=== PATIENT | male | born 1965 | race Caucasian/White ===

== ENCOUNTER → 2018-06-21 10:46 | Day surgery (SDC) | payer OTHER ==
[~2018-06-21 10:46] MED LIST: Buffered Lidocaine 1% SYRIN* 1 ML/SYRINGE INTRADERM ONE; Bupivacaine 0.5% W/EPI SDV* 30 ML VIAL ONE; EPINEPHRINE 1 MG/ML 1 ML VIAL ONE; Glycopyrrolate IV* 0.2 MG/ML 1 ML VIAL ONE; Lactated Ringers 1000 ML Bag* 1,000 ML IV SCH; Lidocaine 2% PF * 5 ML VIAL ONE; Midazolam* 1 MG/ML 2 ML VIAL (2 MG) ONE; Neostigmine Methylsulfate* 1 MG/ML 10 ML VIAL (1 mg/ml) ONE; Propofol* 10 MG/ML 20 ML BTL ONE; Rocuronium* 10 MG/ML VIAL ONE; ceFAZolin 2 GM PREMIX in ORs 2 GM/50 ML BAG IVPB ONE; fentaNYL* 50 MCG/ML 2 ML VIAL (100 MCG VIAL) ONE
[2018-06-21 12:10] LABS: Activated Partial Thrombo Time 27.8 seconds (26.0-36.3); INR 0.85 (0.77-1.02)
[2018-06-21 13:03] LABS: Hematocrit 40 % (42-52); Hemoglobin 13.9 g/dl (14.0-18.0); Mean Corpuscular HGB Conc 35 g/dl (31-36); Mean Corpuscular Hemoglobin 31 pg (27-31); Mean Corpuscular Volume 88 fL (80-94); Platelet Count 223 10^3/ul (150-450); Red Blood Count 4.51 10^6/ul (4.00-5.40); Red Cell Distribution Width 13 % (10.5-15); White Blood Count 5.5 10^3/ul (3.5-10.8)
[2018-06-21 18:45] VITALS: BP 132/76
--- NOTE | 2018-06-23 23:50 | OP ---
OPERATIVE REPORT: DATE OF OPERATION: 06/21/18 DATE OF : 63 SURGEON: Glen Mccracken MD RENTAL AGENT: NICOLETTE Santos ANESTHESIOLOGIST: Dr. Brennon Gutiérrez. ANESTHESIA: General anesthesia, regional interscalene block anesthesia. PRE-OP DIAGNOSES: 1. Right shoulder rotator cuff tendon tear, supraspinatus. 2. Right shoulder subacromial impingement. 3. Right shoulder acromioclavicular joint osteoarthritis. 4. Possible right shoulder biceps tendinosis or superior labral tear. 5. Possible right shoulder superior aspect undersurface subscapularis tendon partial-thickness tear. POST-OP DIAGNOSES: 1. Right shoulder rotator cuff tendon tear, supraspinatus. 2. Right shoulder subacromial impingement. 3. Right shoulder acromioclavicular joint osteoarthritis. 4. Right shoulder biceps tendinosis. 5. Right shoulder superior edge subscapularis minimal tendinosis, no high- grade tear. OPERATIVE PROCEDURE: 1. Right shoulder arthroscopic rotator cuff tendon repair, supraspinatus, double- row, with 4 anchors. 2. Right shoulder arthroscopic subacromial decompression. 3. Right shoulder arthroscopic distal clavicle resection. 4. Right shoulder arthroscopic limited debridement including release of biceps tendon. 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 The patient had multiple medical problems including a history of an aortic valve replacement and surgical fixation of an ascending aortic aneurysm. The patient had responded insufficiently to non-operative management and had opted for surgery. Appropriate bridging was performed with Lovenox as the patient was taken off Coumadin preoperatively. Appropriate preoperative clearances and optimization performed. MRI had shown a full-thickness tear of the distal supraspinatus tendon, a mild partial tear at the distal subscapularis tendon, and tendinosis versus a partial tear of the proximal long head of the biceps tendon. Discussed risks and potential complications of surgery and the patient opted to move forward with surgery. ANTIBIOTICS: Ancef 2 g IV. IV FLUIDS: 2000 cc crystalloid. BCUT-XA-IAAS TIME: 108 minutes. ARTHROSCOPY FLUID UTILIZED: Unknown. SPECIMEN: None. IMPLANTS: [employer]w anchors, 5.5 mm, double-loaded with SutureTape x2 in a medial row. Then there was a lateral row anchor which 4.75-mm Arthrex SwiveLock anchor. Then there was a fourth anchor anteriorly which was a Corkscrew anchor, 4.75 mm with SutureTape. COMPLICATIONS: None. ESTIMATED BLOOD LOSS: Minimal. DESCRIPTION OF PROCEDURE: The patient signed a written consent in the preoperative holding. Operative extremity was marked in the preoperative holding. Dr. Gutiérrez of anesthesia performed a regional interscalene block in the preoperative holding. The patient was taken back to the operating room and placed supine on the operating room table. Sedated and intubated. The patient was placed in the lateral decubitus position with the right shoulder up. Axillary roll placed. Yarbrough bag hardened. All bony prominences padded. Longitudinal traction placed with 15 pounds, appropriate amount of forward flexion and abduction of the shoulder. Right shoulder was prepped and draped. Surgical time-out performed. Spinal needle was used to enter the glenohumeral joint from posterior. 30 cc of normal saline was infused. Posterior glenohumeral joint portal was established. No severe articular cartilage damage. No loose body. Some clear fraying of the superior aspect of the subscapularis tendon. Clear full- thickness tear of supraspinatus. Some tendinosis along the long head of biceps tendon. No superior labral tear. Anterior glenohumeral joint portal was established under direct visualization. Used a probe to evaluate the long head of biceps tendon. I decided that it was sufficiently tendonotic to make release appropriate. I used arthroscopic scissors to cut the long head of biceps tendon at its origin. Interestingly, even after it was cut full thickness, it did not retract significantly at all. This was confirmation of its significantly tendonotic nature, especially distal to the joint. To avoid having prominent end of biceps tendon within the joint, I used an arthroscopic shaver to debride the prominent tendon to where it exited the joint. Next evaluated carefully the subscapularis tendon, which showed some possible superior aspect undersurface tearing on preoperative MRI. Used an arthroscopic shaver to smooth out the frayed superior end of it and there was no clear high- grade tear of the superior aspect of the tendon, either undersurface or elsewhere. Therefore, decided no subscapularis repair was required. Removed instruments and fluid from glenohumeral joint. Established anterior and posterior subacromial portals. Made lateral and then posterolateral portals under direct visualization. Installed plastic cannulas in anterior and lateral portals. Clear full-thickness supraspinatus rotator cuff tendon tear, likely involving a small amount of anterior infraspinatus. [place] shaped. It was retracted but not to the level of the glenoid. Rotator cuff grasper reduced it nicely to the whole amount of the footprint on the humeral head under some mild tension. Debrided the footprint with a VAPR and then an arthroscopic bur. Debrided tendon end with the arthroscopic shaver. I moved my arthroscope into the lateral cannula and I actually confirmed that the infraspinatus was not involved and it was just the supraspinatus that was involved in the tear. I was able to look nicely down the posterior aspect of the cuff musculature. Next, performed subacromial decompression. Did so using arthroscopic bur. Flattened down really nicely the undersurface of the anterior aspect of the acromion with the arthroscopic bur. Given the size, large, of the tear, full within the supraspinatus, I decided on a double-row repair. I inserted 2 Corkscrew 5.5-mm anchors in the more medial half of the footprint. These were each double-loaded with SutureTape. I used a Scorpion to pass horizontal mattress sutures. I passed all sutures from these 2 anchors before tying them. I next loaded all 8 SutureTapes from the medial row and placed them into a lateral row SwiveLock 4.75-mm anchor. I used a TigerTail suture from that lateral row anchor to place a simple stitch posteriorly to bring additional tendon nicely to bone. As I was evaluating this area of robust repair, I noted a small amount of tendon open into the joint anteriorly. Unclear how much of this was rotator cuff interval and how much of it was anterior most supraspinatus, but it appeared that some of this was anterior supraspinatus. I, therefore, decided to place one additional anchor, small anchor, Corkscrew 4.75 mm. I placed one horizontal mattress stitch with SutureTape very nicely opposed additional rotator cuff to bone. I examined the stability of my repair with movement of the upper arm and probing. Excellent repair that I was very happy with. I next proceeded to the distal clavicle in the AC joint. I debrided synovitis about this joint with VAPR. I then removed at least 8 mm of the distal end of the clavicle with an arthroscopic bur. I removed instruments and fluids from subacromial space. I closed skin incisions with [id number] and 12 stitches using nylon 3-0 sutures. Xeroform, 4x4s, ABDs, foam tape. Sling with abduction pillow. The patient was awakened, extubated, and brought to the PACU. The patient was discharged home with Percocet as needed for pain control. He was to restart Coumadin in the morning following surgery per his primary care physician's recommendations. He will see me in 10 to 14 days postoperatively. I will have him start physical therapy after that first clinic visit with me. He will be wearing the sling at all times. [id number]/CPS #: [id number]
== END | disposition home or self-care (01) ==
LOC: OR 10:46
PROVIDERS: ATTEND Orthopaedic Surgery
DX: S46.011A Strain of muscle(s) and tendon(s) of the rotator cuff of right shoulder, initial encounter (principal); M75.41 Impingement syndrome of right shoulder; M19.011 Primary osteoarthritis, right shoulder; M75.21 Bicipital tendinitis, right shoulder; G89.18 Other acute postprocedural pain; E78.5 Hyperlipidemia, unspecified; I10 Essential (primary) hypertension; K21.9 Gastro-esophageal reflux disease without esophagitis; X58.XXXA Exposure to other specified factors, initial encounter; Y92.9 Unspecified place or not applicable; Z79.01 Long term (current) use of anticoagulants; Z95.2 Presence of prosthetic heart valve
CPT/HCPCS: 36415; 85027; 85610; 85730; C1713; J0690; J2250; J2704; J2710; J3010

== ENCOUNTER 2021-05-02 06:12 | Observation (INO) ==
[~2021-05-02 06:12] MED LIST changes: +Buffered Lidocaine 1% SYRIN 1 ml INTRADERM ONE; -Buffered Lidocaine 1% SYRIN* 1 ML/SYRINGE INTRADERM ONE; -Bupivacaine 0.5% W/EPI SDV* 30 ML VIAL ONE; +DiMENhydriNATE IV 50 mg/ml 1 ml VIAL IV PUSH ONE; -EPINEPHRINE 1 MG/ML 1 ML VIAL ONE; -Glycopyrrolate IV* 0.2 MG/ML 1 ML VIAL ONE; +HYDROcodone/ACETAMIN 5/325 mg TAB PO PRN; -Lactated Ringers 1000 ML Bag* 1,000 ML IV SCH; +Lactated Ringers 1000 ml BAG 1,000 ML IV SCH; -Lidocaine 2% PF * 5 ML VIAL ONE; +Metoclopramide 5 MG/ML VIAL (10 mg) IV PRN; -Midazolam* 1 MG/ML 2 ML VIAL (2 MG) ONE; +Naloxone 0.4 mg VIAL 0.4 mg/ml 1 ml VIAL IV PRN; -Neostigmine Methylsulfate* 1 MG/ML 10 ML VIAL (1 mg/ml) ONE; +Ondansetron 4 mg VIAL 2 MG/ML 2 ml VIAL IV PRN; -Propofol* 10 MG/ML 20 ML BTL ONE; -Rocuronium* 10 MG/ML VIAL ONE; -ceFAZolin 2 GM PREMIX in ORs 2 GM/50 ML BAG IVPB ONE; +fentaNYL 100 mcg/2 ml 50 MCG/ML VIAL IV PRN; -fentaNYL* 50 MCG/ML 2 ML VIAL (100 MCG VIAL) ONE
[2021-05-02] MEDS ORDERED: DiMENhydriNATE IV 50 mg/ml 1 ml VIAL ONE (06:33)
[2021-05-02] MEDS ORDERED: ceFAZolin 2 GM in NS PREMIX 2 GM/100 ML BAG IVPB ONE (06:33)
[2021-05-02] MEDS ORDERED: Bupivacaine 0.5% SDV PF 30ML VIAL ONE ×2 (06:52→07:23)
[2021-05-02] MEDS ORDERED: Rocuronium 50 mg VIAL 10 mg/ml 5 ml VIAL (50 mg) ONE (07:03)
[2021-05-02] MEDS ORDERED: Lidocaine 2% PF 5 ML VIAL ONE (07:05)
[2021-05-02] MEDS ORDERED: Propofol 10 MG/ML 20 ML BTL ONE (07:06)
[2021-05-02] MEDS ORDERED: Midazolam 2 mg/2 ml VIAL 1 mg/ml 2 ml VIAL (2 mg) ONE (07:06)
[2021-05-02] MEDS ORDERED: Dexamethasone IV 4 MG/ML VIAL 1 ml VIAL ONE (08:19)
[2021-05-02] MEDS ORDERED: Ondansetron 4 mg VIAL 2 MG/ML 2 ml VIAL ONE (08:19)
[2021-05-02] MEDS ORDERED: Furosemide 20 mg/2 ml IV VIAL IV ONE (11:18)
[2021-05-02] MEDS ORDERED: Furosemide 20 mg/2 ml IV VIAL ONE (11:19)
[2021-05-02] MEDS ORDERED: Levalbuterol 1.25MG/0.5ML NEB.SOL ONE (11:19)
[2021-05-02] MEDS ORDERED: Levalbuterol 0.63MG/3ML NEB UNIT OF USE INH PRN (11:19)
[2021-05-02] MEDS ORDERED: Levalbuterol 0.63MG/3ML NEB UNIT OF USE INH ONE (11:24)
[2021-05-02] MEDS ORDERED: Ondansetron ODT 4 mg TAB 4 MG TAB PO PRN (15:58)
[2021-05-02] MEDS ORDERED: Magnesium Hydroxide LIQ 30 ML UDC PO PRN (15:58)
[2021-05-02] MEDS ORDERED: Ondansetron 4 mg VIAL 2 MG/ML 2 ml VIAL IV PRN (15:58)
[2021-05-02] MEDS ORDERED: diPHENhydraMINE 25 mg TAB PO PRN (15:58)
[2021-05-02] MEDS ORDERED: Lactulose 30 ml UDC PO PRN (15:58)
[2021-05-02] MEDS ORDERED: diPHENhydraMINE IV 50 MG/ML 1 ml VIAL (BENADRYL) IV PRN (15:58)
[2021-05-02] MEDS: Lactated Ringers 1000 ml BAG 1,000 ML IV SCH (17:00)
[2021-05-02] MEDS: ceFAZolin 1 GM ADVAN 1 GM in NS 0.9% 50 ML 50 ML IVPB SCH (18:32)
[2021-05-02] MEDS: Magnesium Hydroxide LIQ 30 ML UDC PO SCH (22:06)
[2021-05-03] MEDS: ceFAZolin 1 GM ADVAN 1 GM in NS 0.9% 50 ML 50 ML IVPB SCH ×2 (02:27→08:20)
[2021-05-03] MEDS: Lactated Ringers 1000 ml BAG 1,000 ML IV SCH (03:39)
[2021-05-03 06:53] LABS: Hematocrit 33 % (42-52); Hemoglobin 11.6 g/dL (14.0-18.0); Mean Platelet Volume 7.4 fL (7.4-10.4); Platelet Count 187 10^3/uL (150-450)
[2021-05-03 06:59] LABS: INR 1.12 (0.86-1.15)
[2021-05-03 07:24] LABS: Calcium 8.3 mg/dL (8.6-10.3); eGFR CKD-EPI 103.6 (>60)
[2021-05-03 07:49] VITALS: BP 134/79
[2021-05-03] MEDS: Magnesium Hydroxide LIQ 30 ML UDC PO SCH (08:11)
[2021-05-03] MEDS ORDERED: Enoxaparin 80 MG/0.8 ML SYR SUBCUT SCH (09:00)
[2021-05-03] MEDS ORDERED: Vitamin THERAPEUTIC TAB PO SCH (09:00)
[2021-05-03] MEDS ORDERED: Warfarin DAILY REMINDER **NOTE FOLLOW UP SCH (17:00)
== END 2021-05-03 10:15 | disposition home or self-care (01) ==
LOC: OR 06:12 → SSU 06:12
PROVIDERS: ADMIT Orthopaedic Surgery; ATTEND Orthopaedic Surgery